=== PATIENT | female | born 2005 | race Caucasian/White ===

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

== ENCOUNTER 2023-06-22 18:57 | Emergency (ER) | payer BC, OTHER ==
[2023-06-22] MEDS ORDERED: Benzonatate 100 MG CAP ONE (19:42)
[2023-06-22] MEDS ORDERED: Ondansetron ODT 4 MG TAB ONE (19:42)
== END 2023-06-22 20:13 | disposition home or self-care (01) ==
LOC: BURERS 18:57
DX: J06.9 Acute upper respiratory infection, unspecified (principal)
CPT/HCPCS: 71046; 87804; 93005; Q0162

== ENCOUNTER 2023-11-18 18:47 | Emergency (ER) | payer BC, OTHER ==
[2023-11-18] MEDS ORDERED: Meclizine HCl 25 MG TAB ONE (20:38)
[2023-11-18] MEDS ORDERED: Ibuprofen 200 MG TAB ONE (20:38)
[2023-11-18 20:40] LABS: Band 3 % (5-11); Eosinophils 1 % (0-10); Hematocrit 36.5 % (36.0-47.0); Hemoglobin 12.2 g/dL (12.0-16.0); Lymphocytes 36 % (28-48); MDiff Complete? YES; Mean Corpuscular HGB CONC 33.2 g/dL (32.0-36.0); Mean Corpuscular Hemoglobin 31.3 pg (25.0-35.0); Mean Corpuscular Volume 93.9 fl (78.0-98.0); Mean Platelet Volume 7.2 fL (7.4-10.4); Monocytes 1 % (0-4); Neutrophil 59 % (31-61); Platelet Adequacy Comment Appears Adequate; Platelet Count 322 10x3/uL (130-400); RBC Distribution Width 13.6 % (11.5-14.5); Red Blood Cell (RBC) Count 3.88 mill/uL (4.00-5.20); White Blood Cell (WBC) Count 9.5 10x3/uL (4.8-10.8)
[2023-11-18 20:43] LABS: ALT (SGPT) 29 U/L (8-55); AST (SGOT) 19 U/L (5-34); Albumin 3.6 g/dL (3.5-5.0); Alkaline Phosphatase 49 U/L (40-100); Anion Gap 15 mmol/L (10-20); BUN (Urea Nitrogen) 16 mg/dL (7.0-18.7); Bilirubin, Total 0.2 mg/dL (0.2-1.2); Calc. Creatinine Clearance 0 mL/min (70-130); Calcium 8.6 mg/dL (7.8-10.44); Carbon Dioxide 20 mmol/L (22-29); Chloride 108 mmol/L (98-107); Estimated GFR 121; Globulin 2.4 g/dL (2.4-3.5); Glucose 122 mg/dL (70-105); Potassium 4.3 mmol/L (3.5-5.1); Sodium 139 mmol/L (136-145)
[2023-11-18 21:56] LABS: Bilirubin Negative (Negative); Blood, Urine Trace (Negative); Clarity Clear (Clear); Glucose, Urine (Dipstick) Negative (Negative); Ketone, Urine Negative (Negative); Leukocyte Negative (Negative); Nitrite Positive (Negative); Protein, Urine (Dipstick) Negative (Neg-Trace); Urobilinogen 0.2 mg/dL (Less than 2); pH, Urine 6.5 (5.0-9.0)
[2023-11-18 22:19] LABS: Bacteria/HPF None Seen HPF (None Seen); CAUTI Indications for Culture Alt mental st,lethar; RBC/HPF None Seen HPF (0-3); Squamous Epithelial 0-3 HPF (0-3); WBC/HPF None Seen HPF (0-3)
[2023-11-18 22:21] LABS: Urine Culture Reflex No No
== END 2023-11-18 23:15 | disposition home or self-care (01) ==
LOC: BURERS 18:47
DX: R51.9 Headache, unspecified (principal); R42 Dizziness and giddiness
CPT/HCPCS: 70450; 80053; 81001; 83605; 85025

== ENCOUNTER 2024-02-29 14:48 | Emergency (ER) | payer BC, OTHER ==
[2024-02-29 15:11] LABS: #Basophils 0.1 thou/uL (0.0-0.2); #Eosinphils 0.1 thou/uL (0.0-0.7); #Monocytes 0.6 thou/uL (0.11-0.59); %Basophils 1.5 % (0.0-1.0); %Eosinophils 1.7 % (0.0-10.0); %Lymphocytes 29.5 % (28.0-48.0); %Neutrophils 58.4 % (31.0-61.0); Hematocrit 38.5 % (36.0-47.0); Hemoglobin 12.4 g/dL (12.0-16.0); Mean Corpuscular HGB CONC 32.2 g/dL (32.0-36.0); Mean Corpuscular Volume 96.2 fl (78.0-98.0); Mean Platelet Volume 7.3 fL (7.4-10.4); Platelet Count 337 10x3/uL (130-400); RBC Distribution Width 13.4 % (11.5-14.5); White Blood Cell (WBC) Count 6.8 10x3/uL (4.8-10.8)
[2024-02-29 15:19] LABS: ALT (SGPT) 37 U/L (8-55); AST (SGOT) 19 U/L (5-34); Albumin 3.5 g/dL (3.5-5.0); Alkaline Phosphatase 52 U/L (40-100); Anion Gap 14 mmol/L (10-20); BUN (Urea Nitrogen) 8 mg/dL (7.0-18.7); Bilirubin, Total 0.3 mg/dL (0.2-1.2); Calc. Creatinine Clearance 0 mL/min (70-130); Calcium 8.9 mg/dL (7.8-10.44); Carbon Dioxide 22 mmol/L (22-29); Chloride 107 mmol/L (98-107); Estimated GFR 110; Globulin 3.2 g/dL (2.4-3.5); Glucose 88 mg/dL (70-105); Potassium 3.7 mmol/L (3.5-5.1); Protein, Total 6.7 g/dL (6.0-8.3); Sodium 139 mmol/L (136-145)
[2024-02-29] MEDS ORDERED: Iopamidol 370 76% 100 ML VIAL ONE (15:20)
[2024-02-29 15:33] LABS: BHCG - Serum Negative (NEGATIVE); Pregs Control Background? CLEAR/WHITE (CLR/WHITE); Pregs Control Bar Appear? YES (CONTROL BAR)
[2024-02-29] MEDS ORDERED: Metoclopramide HCl 10 MG (2 mL) VIAL ONE (15:37)
[2024-02-29] MEDS ORDERED: Midodrine HCl 5 MG TAB PO SCH (16:30)
== END 2024-02-29 17:00 | disposition home or self-care (01) ==
LOC: BURERS 14:48
DX: R41.82 Altered mental status, unspecified (principal); R42 Dizziness and giddiness; Z86.73 Personal history of transient ischemic attack (TIA), and cerebral infarction without residual deficits; Z79.82 Long term (current) use of aspirin
CPT/HCPCS: 36416; 70450; 70496; 70498; 80053; 84703; 85025; 93005; 96361; 96365; J2765

== ENCOUNTER 2024-05-31 15:06 | Emergency (ER) | payer BC, OTHER | END 2024-05-31 16:19 | disposition home or self-care (01) | LOC: BURERS 15:06 | DX: B34.9 Viral infection, unspecified (principal); Z86.73 Personal history of transient ischemic attack (TIA), and cerebral infarction without residual deficits; Z79.82 Long term (current) use of aspirin; Z79.899 Other long term (current) drug therapy | CPT/HCPCS: 87428; 99283 ==

== ENCOUNTER 2024-09-19 11:37 | Emergency (ER) | payer BC, OTHER ==
[2024-09-19] MEDS ORDERED: Dexamethasone 4 mg/ml Vial ONE (11:55)
== END 2024-09-19 12:06 | disposition home or self-care (01) ==
LOC: BURERS 11:37
DX: R09.81 Nasal congestion (principal); R68.84 Jaw pain; Z86.73 Personal history of transient ischemic attack (TIA), and cerebral infarction without residual deficits
CPT/HCPCS: 96372; 99283; J1100